=== PATIENT | male | born 1945 | race Asian ===

== ENCOUNTER → 2018-10-10 | Outpatient (CLI) | payer OTHER, MEDICAID ==
[~2018-10-10] MED LIST: GADOBUTROL 10 ML VIAL IVP ONE
== END ==
LOC: FIMAGING 06:48
PROVIDERS: ATTEND Radiology Radiation Oncology
DX: C71.9 Malignant neoplasm of brain, unspecified (principal); C34.80 Malignant neoplasm of overlapping sites of unspecified bronchus and lung
CPT/HCPCS: 70553; A9585

== ENCOUNTER → 2019-01-15 | Outpatient (CLI) | payer OTHER, MEDICAID | LOC: FIMAGING 06:41 | PROVIDERS: ATTEND Radiology Radiation Oncology | DX: Z08 Encounter for follow-up examination after completed treatment for malignant neoplasm (principal); Z85.841 Personal history of malignant neoplasm of brain; C34.80 Malignant neoplasm of overlapping sites of unspecified bronchus and lung | CPT/HCPCS: 70553; A9585 ==